=== PATIENT | male | born 1965 | race Caucasian/White ===

== ENCOUNTER 2016-10-18 09:53 | Day surgery (SDC) | payer MEDICAID ==
[2016-10-18] MEDS ORDERED: LIDOCAINE 1% 2 ML INJ ID PRN (10:19)
[2016-10-18] MEDS ORDERED: LR 1,000 ML IV ONE (10:19)
--- NOTE | 2016-10-18 10:27 | PDGENHP ---
History & Physical Chief Complaint: Screening colonoscopy History of Present Illness: Needs screening colonoscopy Relevant Physical Exam: GEN: NAD. Cardiac: RRR. Lungs: CTA B. Abd: Soft, nt, nd
[2016-10-18] MEDS ORDERED: fentaNYL 100 MCG/2 ML INJ ONE (11:19)
[2016-10-18] MEDS ORDERED: PROPOFOL 200 MG/20 ML VIAL ONE (11:19)
--- NOTE | 2016-10-18 11:33 | PDANEPAE ---
ANE History of Present Illness Screening colonoscopy ANE Past Medical History - Cardiovascular History Hx Hypertension: No Hx Arrhythmias: No Hx Chest Pain: No Hx Coronary Artery / Peripheral Vascular Disease: No Hx CHF / Valvular Disease: No Hx Palpitations: No - Pulmonary History Hx COPD: No Hx Asthma/Reactive Airway Disease: No Hx Recent Upper Respiratory Infection: No Hx Oxygen in Use at Home: No - Neurologic History Hx Cerebrovascular Accident: No Hx Seizures: No Hx Dementia: No - Endocrine History Hx Diabetes: No - Renal History Hx Renal Disorders: No - Liver History Hx Hepatic Disorders: No - Neurological & Psychiatric Hx Hx Neurological and Psychiatric Disorders: No - Cancer History Hx Cancer: No - Congenital Disorder History Hx Congenital Disorders: No - GI History Hx Gastrointestinal Disorders: Yes - Chronic Pain History Chronic Pain: No ANE Review of Systems - Exercise capacity Exercise capacity: >=4 METS (works out regularly) METS (RN): 5 METS - Systems Gastrointestinal: Reports: no symptoms (GERD, asymptomatic on meds) ANE Patient History - Allergies Allergies/Adverse Reactions: No Known Allergies Allergy (Unverified 10/03/16 13:03) - Home Medications Home medications: home medication list seen and reviewed Home Medications: Aspirin 81mg (*) 10/03/16 [Last Taken 2 Weeks Ago] FENOFIBRATE 10/03/16 [Last Taken 10/16/16] Fish Oil 10/03/16 [Last Taken 2 Weeks Ago] Omeprazole 10/03/16 [Last Taken 10/17/16] SIMVASTATIN 10/03/16 [Last Taken 10/16/16] - NPO status NPO Since - Liquids (Date): 10/17/16 NPO Since - Liquids (Time): 22:00 NPO Since - Solids (Date): 10/17/16 NPO Since - Solids (Time): 08:00 - Anes Hx Anes Hx: no prior problems - Smoking Hx Smoking Status: Never smoked Marijuana use: No - Alcohol Use Alcohol Use: Other (1-2 drinks per day) - Family Anes Hx Family Anes Hx: none ANE Labs/Vital Signs - Vital Signs Blood Pressure: 122/87 Heart Rate: 86 Respiratory Rate: 16 O2 Sat (%): 96 Height: 182.88 cm Weight: 70.76 kg ANE Physical Exam - Airway Neck exam: FROM Mallampati Score: Class 1 Mouth exam: normal dental/mouth exam - Pulmonary Pulmonary: clear to auscultation - Cardiovascular Cardiovascular: regular rate and rhythym - ASA Status ASA Status: II ANE Anesthesia Plan Anesthesia Plan: GA with mask
[2016-10-18] MEDS ORDERED: MIDAZOLAM 2 MG/2 ML VIAL ONE (11:44)
[2016-10-18] MEDS ORDERED: NALOXONE HCL 0.4 MG/ML INJ IVP PRN ×2 (11:56→13:47)
--- NOTE | 2016-10-18 12:06 | POSTOPPROG ---
Post Op Note Date of Operation: 10/18/16 Surgeon: Edenilson Tabares Pre-op Diagnosis: screening colonoscopy Post-op Diagnosis: screening colonoscopy Indication: screening Procedure: Colonoscopy Findings: 3 sigmoid colon polyps removed Inf/Abcess present in the surg proc area at time of surgery?: No
[2016-10-18 12:45] VITALS: TEMP 97.9
[2016-10-18 12:48] VITALS: RESP 16
[2016-10-18 13:12] VITALS: BP 132/82
[2016-10-18 13:17] VITALS: PULSE 76; O2SAT 98
--- NOTE | 2016-10-18 13:50 | POSTANESTH ---
Post Anesthetic Evaluation Cardiovascular Status: Normal, Stable Respiratory Status: Normal, Stable Level of Consciousness/Mental Status: Can Participate in Eval Pain Control: Adequate, Prn Tx Ordered Nausea/Vomiting Control: Adequate, Prn Tx Ordered Complications Possibly Related to Anesthesia: None Noted
--- NOTE | 2016-10-18 20:57 | GPN ---
[f rep st] PROCEDURE NOTE PREPROCEDURE DIAGNOSIS: Screening colonoscopy. POSTPROCEDURE DIAGNOSIS: Screening colonoscopy. PROCEDURE: Colonoscopy with biopsy, colonoscopy with snare. MEDICATIONS: Monitored anesthesia care. INDICATIONS: The patient is a 51-year-old, middle age gentleman, in need of a screening colonoscopy . The risks and benefits of the procedure discussed with the patient. Consent obtained. The risks include, but not limited to, bleeding, perforation, sedation. The patient is ASA class 2. DESCRIPTION OF PROCEDURE: The adult colonoscope was advanced into the terminal ileum, which appears normal. The ileocecal valve, appendiceal orifice, cecum ascending colon, hepatic flexure, transver se colon, splenic flexure, descending colon appeared normal. There were 3 polyps in the sigmoid col on measuring 2 mm to 6 mm. The 2 larger polyps were removed using cold snare polypectomy. The 2 mm polyp was removed using cold biopsy forceps. All polyps retrieved and placed in the same bottle an d sent to pathology. The rectum was normal. Retroflexed views in the rectum were normal. IMPRESSION: 1. Three sigmoid colon polyps, status post removal using cold snare and cold biopsy forceps. 2. Normal retroflexion in the rectum. 3. Normal terminal ileum. RECOMMENDATIONS: 1. Advance diet as tolerated. 2. Discharge to home with escort. 3. Follow up with final pathology results. Results available within 10 days. 4. Repeat colonoscopy to be determined based on pathology. If 3 or more polyps are found to be vladimir nomatous, repeat colonoscopy in 3 years is recommended. If 1 or 2 polyps are found to be adenomatou s, repeat colonoscopy in 5 years is recommended. 5. Thank you for allowing me to participate in the care of the patient. Please do not hesitate to call with questions. /[id number]/MODL
== END 2016-10-18 13:07 | disposition home or self-care, planned readmission (81) ==
LOC: FSGY 09:53
PROVIDERS: ATTEND Internal Medicine Gastroenterology
PROC: 0DBN8ZX Excision of Sigmoid Colon, Via Natural or Artificial Opening Endoscopic, Diagnostic (ICD-10-PCS; principal; 2016-10-18 11:00)
DX: Z12.11 Encounter for screening for malignant neoplasm of colon (principal); K63.5 Polyp of colon; D12.5 Benign neoplasm of sigmoid colon
CPT/HCPCS: J2250; J2704; J3010